=== PATIENT | female | born 1945 | race African-American/Black ===

== ENCOUNTER 2016-07-30 20:27 | Inpatient (IN) | payer MEDICARE, MEDICAID ==
[~2016-07-30] VITALS: Ht 167.6 cm; Wt 78.0 kg
[~2016-07-30 20:27] MED LIST: CEPHALEXIN PO; KEPP500 PO
[2016-07-31] MEDS ORDERED: LORAZEPAM 2MG/ML CPJ ONE ×2 (00:44→00:52)
[2016-07-31] MEDS ORDERED: LORAZEPAM 2MG/ML CPJ IM ONE (01:30)
[2016-07-31] MEDS ORDERED: LEVETIRACETAM 500MG PREMIX 100 ML IV ONE (01:30)
[2016-07-31 01:43] LABS: BASOPHILS % 0.9 % (0.0-2.0); EOSINOPHILS % 2.2 % (0.0-5.0); HEMATOCRIT. 32.3 % (36.0-48.0); HEMOGLOBIN. 10.9 g/dL (12.0-16.0); LYMPHOCYTES % 40.6 % (20.0-50.0); MEAN CORPUSCULAR HEMOGLOBIN 30.5 pg (28.0-32.0); MEAN CORPUSCULAR HGB CONC 33.7 g/dL (31.0-37.0); MEAN CORPUSCULAR VOLUME 90.4 fL (81.0-99.0); MEAN PLATELET VOLUME 7.6 fl (7.4-10.4); MONOCYTES % 12.4 % (2.0-8.0); NEUTROPHILS % 43.9 % (40.0-76.0); PLATELET 320 x1000/uL (130-400); RED BLOOD CELL COUNT 3.57 mill/uL (4.2-5.4); RED CELL DISTRIBUTION WIDTH 14.2 % (11.6-14.6); WHITE BLOOD COUNT 4.4 x1000/uL (4.5-11.0)
[2016-07-31 01:50] LABS: INR 1.3; PARTIAL THROMBOPLASTIN TIME 21.4 sec (24.0-34.0); PROTHROMBIN TIME 13.4 sec
[2016-07-31 01:57] LABS: ALANINE AMINOTRANSFERASE 16 IU/L (13-61); ALBUMIN 3.1 g/dL (3.4-5.0); ANION GAP 9; CALCIUM 8.6 mg/dL (8.5-10.1); CARBON DIOXIDE 30 mEq/L (21-32); CHLORIDE 108 mEq/L (98-107); INDEX HEMOLYSI 1 (1-3); INDEX ICTERIC 1 (1-4); INDEX LIPEMIC 1 (1-3); TROPONIN I < 0.02 ng/mL (0.00-0.04); UREA NITROGEN BLOOD 8 mg/dL (7-21); eGFR > 60 mL/min (>60)
[2016-07-31 08:20] VITALS: BP 142/86
[2016-07-31 08:30] VITALS: BP 142/86
[2016-07-31] MEDS ORDERED: ONDANSETRON HCL 4MG/2ML VIAL IV PRN (10:45)
[2016-07-31] MEDS ORDERED: HYDROCODONE/ACETAMINOPHEN 5/325MG TABLET PO PRN (10:45)
[2016-07-31] MEDS ORDERED: DOCUSATE SODIUM 100MG CAPSULE PO PRN (10:45)
[2016-07-31] MEDS ORDERED: ACETAMINOPHEN 650MG/20.3ML UDC GT PRN (10:45)
[2016-07-31] MEDS ORDERED: ACETAMINOPHEN 650MG SUPP PR PRN (10:45)
[2016-07-31] MEDS ORDERED: CLONIDINE 0.1MG TABLET PO PRN (10:45)
[2016-07-31] MEDS ORDERED: DIPHENHYDRAMINE 50MG/ML VIAL IV PRN (10:45)
[2016-07-31] MEDS ORDERED: NA PHOS,M-B/NA PHOS,DI-BA ENEMA 118ML PR PRN (10:45)
[2016-07-31] MEDS ORDERED: ACETAMINOPHEN 325MG TABLET PO PRN (10:45)
[2016-07-31] MEDS ORDERED: MAGNESIUM/ALUMINUM HYDROXIDE/SIMETHICONE 30ML UDC PO PRN (10:45)
[2016-07-31] MEDS ORDERED: GUAIFENESIN 200MG/10ML SUGAR FREE UDC PO PRN (10:45)
[2016-07-31] MEDS ORDERED: IPRATROPIUM/ALBUTEROL 0.5-3(2.5)MG/3ML NEB INH PRN (10:45)
[2016-07-31] MEDS ORDERED: DEXTROSE 50% WATER 50ML SYRINGE IV PRN (11:00)
[2016-07-31] MEDS: LEVETIRACETAM 500MG/5ML CUP PO SCH ×2 (11:58→21:05)
[2016-07-31] MEDS: ENOXAPARIN 40MG/0.4ML SYR SUBCUT SCH (11:59)
[2016-07-31 12:00] VITALS: BP 136/78
[2016-07-31] MEDS: BLOOD SUGAR DIAGNOSTIC STRIP TEST SCH ×3 (12:00→21:00)
[2016-07-31] MEDS: INSULIN LISPRO 100 UNITS/ML SUBCUT SCH ×3 (12:02→21:00)
[2016-07-31] MEDS: SODIUM CHLORIDE 0.9% INJ 3ML FLUSH IVF SCH ×2 (14:38→21:05)
[2016-07-31 17:22] VITALS: BP 140/105
[2016-07-31 20:00] VITALS: BP 116/63
[2016-08-01] VITALS: BP 102/63
[2016-08-01 04:00] VITALS: BP 112/64
[2016-08-01] MEDS: SODIUM CHLORIDE 0.9% INJ 3ML FLUSH IVF SCH ×3 (06:34→22:10)
[2016-08-01] MEDS: BLOOD SUGAR DIAGNOSTIC STRIP TEST SCH ×4 (06:39→21:00)
[2016-08-01] MEDS: INSULIN LISPRO 100 UNITS/ML SUBCUT SCH ×4 (06:39→21:00)
[2016-08-01 08:00] VITALS: BP 113/65
[2016-08-01] MEDS: LEVETIRACETAM 500MG/5ML CUP PO SCH ×3 (09:00→22:09)
[2016-08-01 12:00] VITALS: BP 132/87
[2016-08-01] MEDS: ENOXAPARIN 40MG/0.4ML SYR SUBCUT SCH (12:17)
[2016-08-01 16:00] VITALS: BP 101/58
[2016-08-01] MEDS: PHENYTOIN SODIUM 300 MG in SODIUM CHLORIDE 0.9% 50 ML IV SCH (17:23)
[2016-08-01 20:00] VITALS: BP 144/78
[2016-08-01] MEDS: FUROSEMIDE 40MG/4ML VIAL IVP SCH (22:10)
[2016-08-02] VITALS: BP 101/60
[2016-08-02 04:00] VITALS: BP 93/48
[2016-08-02] MEDS: BLOOD SUGAR DIAGNOSTIC STRIP TEST SCH ×4 (06:39→21:00)
[2016-08-02] MEDS: SODIUM CHLORIDE 0.9% INJ 3ML FLUSH IVF SCH ×3 (06:39→21:20)
[2016-08-02] MEDS: INSULIN LISPRO 100 UNITS/ML SUBCUT SCH ×4 (06:40→21:00)
[2016-08-02 08:00] VITALS: BP 99/57
[2016-08-02] MEDS: FUROSEMIDE 40MG/4ML VIAL IVP SCH (08:39)
[2016-08-02] MEDS: LEVETIRACETAM 500MG/5ML CUP PO SCH ×2 (08:39→21:20)
[2016-08-02] MEDS: PHENYTOIN SODIUM 300 MG in SODIUM CHLORIDE 0.9% 50 ML IV SCH (09:48)
[2016-08-02] MEDS: ENOXAPARIN 40MG/0.4ML SYR SUBCUT SCH (11:45)
[2016-08-02 12:00] VITALS: BP 105/64
[2016-08-02] MEDS ORDERED: DILATIN PO (12:31)
[2016-08-02 13:22] LABS: BASOPHILS % 1.1 % (0.0-2.0); EOSINOPHILS % 3.2 % (0.0-5.0); HEMATOCRIT. 37.2 % (36.0-48.0); HEMOGLOBIN. 12.6 g/dL (12.0-16.0); LYMPHOCYTES % 41.3 % (20.0-50.0); MEAN CORPUSCULAR HEMOGLOBIN 30.4 pg (28.0-32.0); MEAN CORPUSCULAR HGB CONC 33.8 g/dL (31.0-37.0); MEAN CORPUSCULAR VOLUME 89.7 fL (81.0-99.0); MEAN PLATELET VOLUME 7.6 fl (7.4-10.4); MONOCYTES % 14.1 % (2.0-8.0); NEUTROPHILS % 40.3 % (40.0-76.0); PLATELET 303 x1000/uL (130-400); RED BLOOD CELL COUNT 4.15 mill/uL (4.2-5.4); RED CELL DISTRIBUTION WIDTH 13.7 % (11.6-14.6); WHITE BLOOD COUNT 3.1 x1000/uL (4.5-11.0)
[2016-08-02 13:44] LABS: ANION GAP 11; CARBON DIOXIDE 32 mEq/L (21-32); CHLORIDE 103 mEq/L (98-107); UREA NITROGEN BLOOD 8 mg/dL (7-21)
[2016-08-02 13:45] LABS: ALANINE AMINOTRANSFERASE 15 IU/L (13-61); ALBUMIN 3.1 g/dL (3.4-5.0); CALCIUM 8.9 mg/dL (8.5-10.1); INDEX HEMOLYSI 1 (1-3); INDEX ICTERIC 1 (1-4); INDEX LIPEMIC 1 (1-3); eGFR > 60 mL/min (>60)
[2016-08-02 16:00] VITALS: BP 110/65
[2016-08-02 20:00] VITALS: BP 119/73
[2016-08-02] MEDS: PHENYTOIN SODIUM EXTENDED 100MG CAPSULE PO SCH (21:20)
[2016-08-03] VITALS (8 sets, daily range): BP systolic 106–135; BP diastolic 59–96
[2016-08-03] MEDS: SODIUM CHLORIDE 0.9% INJ 3ML FLUSH IVF SCH ×3 (05:45→21:08)
[2016-08-03] MEDS: BLOOD SUGAR DIAGNOSTIC STRIP TEST SCH ×4 (06:11→21:00)
[2016-08-03] MEDS: INSULIN LISPRO 100 UNITS/ML SUBCUT SCH ×4 (06:11→21:00)
[2016-08-03] MEDS: LEVETIRACETAM 500MG/5ML CUP PO SCH ×2 (08:30→21:09)
[2016-08-03] MEDS: FUROSEMIDE 40MG/4ML VIAL IVP SCH (08:33)
[2016-08-03] MEDS: ENOXAPARIN 40MG/0.4ML SYR SUBCUT SCH (11:37)
[2016-08-03 17:51] LABS: BASOPHILS % 0.7 % (0.0-2.0); HEMATOCRIT. 41.1 % (36.0-48.0); HEMOGLOBIN. 13.6 g/dL (12.0-16.0); LYMPHOCYTES % 44.3 % (20.0-50.0); MEAN CORPUSCULAR HGB CONC 33.1 g/dL (31.0-37.0); MEAN CORPUSCULAR VOLUME 90.8 fL (81.0-99.0); MEAN PLATELET VOLUME 7.4 fl (7.4-10.4); MONOCYTES % 14.7 % (2.0-8.0); NEUTROPHILS % 36.3 % (40.0-76.0); PLATELET 254 x1000/uL (130-400); RED BLOOD CELL COUNT 4.52 mill/uL (4.2-5.4); RED CELL DISTRIBUTION WIDTH 14.1 % (11.6-14.6); WHITE BLOOD COUNT 2.9 x1000/uL (4.5-11.0)
[2016-08-03 18:19] LABS: ALANINE AMINOTRANSFERASE 17 IU/L (13-61); ANION GAP 9; CALCIUM 9.4 mg/dL (8.5-10.1); CARBON DIOXIDE 33 mEq/L (21-32); CHLORIDE 104 mEq/L (98-107); INDEX HEMOLYSI 1 (1-3); INDEX ICTERIC 1 (1-4); INDEX LIPEMIC 1 (1-3); UREA NITROGEN BLOOD 9 mg/dL (7-21); eGFR > 60 mL/min (>60)
[2016-08-03] MEDS: PHENYTOIN SODIUM EXTENDED 100MG CAPSULE PO SCH (21:08)
== END 2016-08-03 22:25 | disposition home or self-care (01) | DRG 101 ==
LOC: ER 20:28 → 8WST 07-31 03:45
PROVIDERS: ADMIT Family Medicine; ATTEND Family Medicine
PROC: 02H633Z Insertion of Infusion Device into Right Atrium, Percutaneous Approach (ICD-10-PCS; principal; 2016-07-31)
PROC: B244ZZZ Ultrasonography of Right Heart (ICD-10-PCS; 2016-07-31)
DX: G40.401 Other generalized epilepsy and epileptic syndromes, not intractable, with status epilepticus (principal); E46 Unspecified protein-calorie malnutrition; C79.51 Secondary malignant neoplasm of bone; D63.8 Anemia in other chronic diseases classified elsewhere; E11.9 Type 2 diabetes mellitus without complications; E78.00 Pure hypercholesterolemia, unspecified; E78.5 Hyperlipidemia, unspecified; I10 Essential (primary) hypertension; I89.0 Lymphedema, not elsewhere classified; G31.84 Mild cognitive impairment of uncertain or unknown etiology; J45.909 Unspecified asthma, uncomplicated; Z86.73 Personal history of transient ischemic attack (TIA), and cerebral infarction without residual deficits; Z85.3 Personal history of malignant neoplasm of breast; Z90.12 Acquired absence of left breast and nipple; Z68.27 Body mass index [BMI] 27.0-27.9, adult; Z88.5 Allergy status to narcotic agent; Z91.041 Radiographic dye allergy status; Z91.011 Allergy to milk products; Z79.899 Other long term (current) drug therapy
CPT/HCPCS: 36415; 36556; 70450; 71010; 71250; 73030; 80053; 80185; 82962; 84484; 85025; 85610; 85730; 86300; 93005; 97163; 99291; J1165; J1650; J1940; J1953; J2060; J7040

== ENCOUNTER 2016-09-11 18:09 | Inpatient (IN) | payer MEDICARE, MEDICAID ==
[~2016-09-11] VITALS: Ht 167.6 cm; Wt 77.1 kg
[~2016-09-11 18:09] MED LIST changes: -CEPHALEXIN PO; +DILATIN PO; +PHEN100C4 PO
[2016-09-11] MEDS ORDERED: PANTOPRAZOLE SODIUM 40 MG/VIAL IV STA (19:27)
[2016-09-11 19:58] LABS: BASOPHILS % 0.5 % (0.0-2.0); EOSINOPHILS % 1.3 % (0.0-5.0); HEMATOCRIT. 28.5 % (36.0-48.0); HEMOGLOBIN. 9.5 g/dL (12.0-16.0); MEAN CORPUSCULAR VOLUME 89.9 fL (81.0-99.0); MEAN PLATELET VOLUME 6.9 fl (7.4-10.4); MONOCYTES % 10.9 % (2.0-8.0); NEUTROPHILS % 70.3 % (40.0-76.0); PLATELET 262 x1000/uL (130-400); RED BLOOD CELL COUNT 3.17 mill/uL (4.2-5.4); RED CELL DISTRIBUTION WIDTH 14.4 % (11.6-14.6)
[2016-09-11 20:05] LABS: INR 1.1; PROTHROMBIN TIME 11.8 sec
[2016-09-11 20:07] LABS: CARBON DIOXIDE 27 mEq/L (21-32); CHLORIDE 109 mEq/L (98-107)
[2016-09-11 20:14] LABS: TROPONIN I < 0.02 ng/mL (0.00-0.04)
[2016-09-12 01:30] VITALS: BP 108/59
[2016-09-12 04:00] VITALS: BP 112/64
[2016-09-12 07:00] LABS: BASOPHILS % 0.5 % (0.0-2.0); EOSINOPHILS % 4.1 % (0.0-5.0); HEMOGLOBIN. 8.5 g/dL (12.0-16.0); LYMPHOCYTES % 32.5 % (20.0-50.0); MEAN CORPUSCULAR HEMOGLOBIN 30.5 pg (28.0-32.0); MEAN CORPUSCULAR VOLUME 89.6 fL (81.0-99.0); MEAN PLATELET VOLUME 7.5 fl (7.4-10.4); NEUTROPHILS % 48.9 % (40.0-76.0); PLATELET 231 x1000/uL (130-400); RED CELL DISTRIBUTION WIDTH 14.4 % (11.6-14.6)
[2016-09-12 07:42] LABS: CARBON DIOXIDE 28 mEq/L (21-32); CHLORIDE 110 mEq/L (98-107)
[2016-09-12 08:00] VITALS: BP 105/63
[2016-09-12 12:00] VITALS: BP 170/70
[2016-09-12 12:10] VITALS: BP 100/59
[2016-09-12] MEDS: PANTOPRAZOLE SODIUM 40 MG/VIAL IV SCH (14:45)
[2016-09-12 16:00] VITALS: BP 101/55
[2016-09-12] MEDS ORDERED: GUAIFENESIN 200MG/10ML SUGAR FREE UDC PO PRN (19:45)
[2016-09-12] MEDS ORDERED: DOCUSATE SODIUM 100MG CAPSULE PO PRN (19:45)
[2016-09-12] MEDS ORDERED: ACETAMINOPHEN 650MG/20.3ML UDC GT PRN (19:45)
[2016-09-12] MEDS ORDERED: ACETAMINOPHEN 650MG SUPP PR PRN (19:45)
[2016-09-12] MEDS ORDERED: ONDANSETRON HCL 4MG/2ML VIAL IV PRN (19:45)
[2016-09-12] MEDS ORDERED: NA PHOS,M-B/NA PHOS,DI-BA ENEMA 118ML PR PRN (19:45)
[2016-09-12] MEDS ORDERED: MAGNESIUM/ALUMINUM HYDROXIDE/SIMETHICONE 30ML UDC PO PRN (19:45)
[2016-09-12] MEDS ORDERED: CLONIDINE 0.1MG TABLET PO PRN (19:45)
[2016-09-12] MEDS ORDERED: IPRATROPIUM/ALBUTEROL 0.5-3(2.5)MG/3ML NEB INH PRN (19:45)
[2016-09-12 21:19] LABS: TOTAL IRON BINDING CAPACITY 218 ug/dL (250-450)
[2016-09-12] MEDS: SODIUM CHLORIDE 0.9% INJ 3ML FLUSH IVF SCH (22:00)
[2016-09-12] MEDS: LEVETIRACETAM 500MG TABLET PO SCH (22:13)
[2016-09-13] VITALS (16 sets, daily range): BP systolic 91–142; BP diastolic 49–82
[2016-09-13] MEDS: HYDROCODONE/ACETAMINOPHEN 5/325MG TABLET PO PRN (01:01)
[2016-09-13] MEDS: IPRATROPIUM/ALBUTEROL 0.5-3(2.5)MG/3ML NEB INH SCH ×4 (02:13→19:53)
[2016-09-13] MEDS: SODIUM CHLORIDE 0.9% INJ 3ML FLUSH IVF SCH ×2 (06:00→21:07)
[2016-09-13 06:41] LABS: BASOPHILS % 0.4 % (0.0-2.0); EOSINOPHILS % 2.7 % (0.0-5.0); HEMATOCRIT. 21.8 % (36.0-48.0); HEMOGLOBIN. 7.4 g/dL (12.0-16.0); LYMPHOCYTES % 33.3 % (20.0-50.0); MEAN CORPUSCULAR HEMOGLOBIN 30.8 pg (28.0-32.0); MEAN CORPUSCULAR VOLUME 90.1 fL (81.0-99.0); MEAN PLATELET VOLUME 7.5 fl (7.4-10.4); MONOCYTES % 9.1 % (2.0-8.0); NEUTROPHILS % 54.5 % (40.0-76.0); PLATELET 207 x1000/uL (130-400); RED BLOOD CELL COUNT 2.42 mill/uL (4.2-5.4); RED CELL DISTRIBUTION WIDTH 14.4 % (11.6-14.6)
[2016-09-13 08:10] LABS: CARBON DIOXIDE 28 mEq/L (21-32); CHLORIDE 110 mEq/L (98-107); HDL CHOLESTEROL 58 mg/dL (40-59); LDL CHOLESTEROL 82 mg/dL (5-100)
[2016-09-13] MEDS: LEVETIRACETAM 500MG TABLET PO SCH ×2 (08:27→21:06)
[2016-09-13] MEDS: PANTOPRAZOLE SODIUM 40 MG/VIAL IV SCH (08:27)
[2016-09-13] MEDS ORDERED: LORAZEPAM 2MG/ML CPJ ONE (11:23)
[2016-09-14] VITALS (10 sets, daily range): BP systolic 96–136; BP diastolic 56–82
[2016-09-14] MEDS: IPRATROPIUM/ALBUTEROL 0.5-3(2.5)MG/3ML NEB INH SCH ×4 (01:51→20:40)
[2016-09-14] MEDS: SODIUM CHLORIDE 0.9% INJ 3ML FLUSH IVF SCH ×3 (05:20→22:36)
[2016-09-14] MEDS: PANTOPRAZOLE SODIUM 40 MG/VIAL IV SCH (09:02)
[2016-09-14] MEDS: LEVETIRACETAM 500MG TABLET PO SCH ×2 (09:02→21:00)
[2016-09-14] MEDS ORDERED: BACTERIOSTATIC SODIUM CHLORIDE 0.9% 30ML VIAL IJ ONE (09:37)
[2016-09-14 16:45] LABS: BASOPHILS % 0.3 % (0.0-2.0); EOSINOPHILS % 3.1 % (0.0-5.0); HEMATOCRIT. 22.5 % (36.0-48.0); HEMOGLOBIN. 7.8 g/dL (12.0-16.0); LYMPHOCYTES % 25.6 % (20.0-50.0); MEAN CORPUSCULAR HEMOGLOBIN 30.9 pg (28.0-32.0); MEAN CORPUSCULAR VOLUME 89.5 fL (81.0-99.0); MEAN PLATELET VOLUME 7.5 fl (7.4-10.4); MONOCYTES % 10.9 % (2.0-8.0); NEUTROPHILS % 60.1 % (40.0-76.0); PLATELET 186 x1000/uL (130-400); RED BLOOD CELL COUNT 2.52 mill/uL (4.2-5.4); RED CELL DISTRIBUTION WIDTH 14.4 % (11.6-14.6)
[2016-09-14 16:57] LABS: CHLORIDE 112 mEq/L (98-107)
[2016-09-14 17:02] LABS: CARBON DIOXIDE 29 mEq/L (21-32)
[2016-09-14] MEDS ORDERED: MIDAZOLAM HCL 2 MG/2 ML VIAL IV PRN (18:10)
[2016-09-14] MEDS ORDERED: FENTANYL CITRATE/PF 50MCG/ML 2ML VIAL IV PRN (18:10)
[2016-09-14] MEDS ORDERED: MIDAZOLAM HCL 5 MG/5 ML VIAL ONE (18:12)
[2016-09-14] MEDS ORDERED: SIMETHICONE 40 MG/0.6 ML 30ML ONE (18:12)
[2016-09-14] MEDS ORDERED: FENTANYL CITRATE/PF 50MCG/ML 2ML VIAL ONE (18:12)
[2016-09-14] MEDS ORDERED: SORBITOL 70% SOLN 30ML PO SCH (22:00)
[2016-09-14] MEDS: DEXT 5%/0.45% NACL 1000ML 1,000 ML IV SCH (22:36)
[2016-09-15] VITALS (18 sets, daily range): BP systolic 99–139; BP diastolic 53–90
[2016-09-15] MEDS: IPRATROPIUM/ALBUTEROL 0.5-3(2.5)MG/3ML NEB INH SCH ×3 (01:21→20:14)
[2016-09-15] MEDS: SORBITOL 70% SOLN 30ML PO NR ×2 (06:00→13:01)
[2016-09-15] MEDS: SODIUM CHLORIDE 0.9% INJ 3ML FLUSH IVF SCH ×3 (06:41→22:00)
[2016-09-15] MEDS: PANTOPRAZOLE SODIUM 40 MG/VIAL IV SCH (09:12)
[2016-09-15] MEDS: LEVETIRACETAM 500MG TABLET PO SCH ×2 (09:12→21:09)
[2016-09-15] MEDS ORDERED: NA PHOS,M-B/NA PHOS,DI-BA ENEMA 118ML PR NR ×2 (11:00→20:00)
[2016-09-15] MEDS: LORAZEPAM 2MG/ML CPJ IV PRN (12:25)
[2016-09-15] MEDS: DEXT 5%/0.45% NACL 1000ML 1,000 ML IV SCH (13:06)
[2016-09-15 13:07] LABS: HEMATOCRIT 27.9 % (36.0-48.0); HEMOGLOBIN 9.5 g/dL (12.0-16.0)
[2016-09-15] MEDS ORDERED: MIDAZOLAM HCL 5 MG/5 ML VIAL ONE ×2 (16:03→16:33)
[2016-09-15] MEDS ORDERED: FENTANYL CITRATE/PF 50MCG/ML 2ML VIAL ONE (16:03)
[2016-09-15] MEDS ORDERED: SIMETHICONE 40 MG/0.6 ML 30ML ONE (16:04)
[2016-09-15] MEDS ORDERED: MIDAZOLAM HCL 5 MG/5 ML VIAL IV PRN (16:19)
[2016-09-15 20:14] LABS: HEMATOCRIT 28.1 % (36.0-48.0); HEMOGLOBIN 9.4 g/dL (12.0-16.0)
[2016-09-15] MEDS ORDERED: SORBITOL 70% SOLN 30ML PO NR (21:00)
[2016-09-15] MEDS: HYDROCODONE/ACETAMINOPHEN 5/325MG TABLET PO PRN (21:17)
[2016-09-16] VITALS (12 sets, daily range): BP systolic 96–131; BP diastolic 47–106
[2016-09-16] MEDS: DEXT 5%/0.45% NACL 1000ML 1,000 ML IV SCH ×2 (00:44→15:13)
[2016-09-16] MEDS: IPRATROPIUM/ALBUTEROL 0.5-3(2.5)MG/3ML NEB INH SCH ×4 (01:04→21:15)
[2016-09-16] MEDS: SODIUM CHLORIDE 0.9% INJ 3ML FLUSH IVF SCH ×3 (05:54→21:15)
[2016-09-16] MEDS ORDERED: SORBITOL 70% SOLN 30ML PO NR (06:00)
[2016-09-16] MEDS ORDERED: NA PHOS,M-B/NA PHOS,DI-BA ENEMA 118ML PR NR (08:00)
[2016-09-16] MEDS: LEVETIRACETAM 500MG TABLET PO SCH ×2 (08:44→21:14)
[2016-09-16] MEDS: PANTOPRAZOLE SODIUM 40 MG/VIAL IV SCH (08:45)
[2016-09-16] MEDS ORDERED: SIMETHICONE 40 MG/0.6 ML 30ML ONE (13:23)
[2016-09-16] MEDS ORDERED: MIDAZOLAM HCL 5 MG/5 ML VIAL ONE (13:23)
[2016-09-16] MEDS ORDERED: FENTANYL CITRATE/PF 50MCG/ML 2ML VIAL ONE (13:24)
[2016-09-16] MEDS ORDERED: MIDAZOLAM HCL 5 MG/5 ML VIAL IV PRN (13:51)
[2016-09-16] MEDS ORDERED: SODIUM CHLORIDE 0.9% 10ML VIAL ONE (14:24)
[2016-09-17] VITALS (10 sets, daily range): BP systolic 92–131; BP diastolic 46–77
[2016-09-17] MEDS ORDERED: CEFTRIAXONE 1 G PREMIX 50 ML IV SCH
[2016-09-17] MEDS: IPRATROPIUM/ALBUTEROL 0.5-3(2.5)MG/3ML NEB INH SCH ×4 (00:32→20:27)
[2016-09-17] MEDS: DEXT 5%/0.45% NACL 1000ML 1,000 ML IV SCH ×2 (03:08→16:28)
[2016-09-17 04:06] LABS: CLARITY URINE CLEAR (CLEAR); COLOR URINE YELLOW (YELLOW); GLUCOSE URINE NEGATIVE (NEGATIVE); KETONES URINE NEGATIVE (NEGATIVE); LEUKOCYTE ESTERASE URINE NEGATIVE (NEGATIVE); NITRITE URINE NEGATIVE (NEGATIVE); OCCULT BLOOD URINE 1+ (NEGATIVE); PH URINE 5.5 (4.5-8.0); PROTEIN URINE NEGATIVE (NEGATIVE); SPECIFIC GRAVITY URINE 1.013 (1.005-1.030)
[2016-09-17] MEDS: ACETAMINOPHEN 325MG TABLET PO PRN (05:14)
[2016-09-17] MEDS: SODIUM CHLORIDE 0.9% INJ 3ML FLUSH IVF SCH ×3 (06:00→21:20)
[2016-09-17] MEDS: PANTOPRAZOLE SODIUM 40 MG/VIAL IV SCH (08:22)
[2016-09-17] MEDS: LEVETIRACETAM 500MG TABLET PO SCH ×2 (08:23→21:17)
[2016-09-17] MEDS ORDERED: SODIUM CHLORIDE 0.9% 1000ML BAG (SEPSIS BOLUS) IV ONE (09:15)
[2016-09-17] MEDS ORDERED: SODIUM CHLORIDE 0.9% 500 ML IV ONE (09:30)
[2016-09-17] MEDS ORDERED: CEFTRIAXONE SODIUM 1 G/VIAL IM NR (09:45)
[2016-09-17 10:29] LABS: BASOPHILS % 0.2 % (0.0-2.0); EOSINOPHILS % 1.3 % (0.0-5.0); HEMATOCRIT. 27.5 % (36.0-48.0); HEMOGLOBIN. 9.5 g/dL (12.0-16.0); LYMPHOCYTES % 13.7 % (20.0-50.0); MEAN CORPUSCULAR HEMOGLOBIN 30.4 pg (28.0-32.0); MEAN CORPUSCULAR VOLUME 88.3 fL (81.0-99.0); MEAN PLATELET VOLUME 6.9 fl (7.4-10.4); MONOCYTES % 8.2 % (2.0-8.0); NEUTROPHILS % 76.6 % (40.0-76.0); PLATELET 200 x1000/uL (130-400); RED BLOOD CELL COUNT 3.12 mill/uL (4.2-5.4); RED CELL DISTRIBUTION WIDTH 14.9 % (11.6-14.6)
[2016-09-17 10:34] LABS: CARBON DIOXIDE 25 mEq/L (21-32); CHLORIDE 106 mEq/L (98-107)
[2016-09-17] MEDS ORDERED: VANCOMYCIN 1250MG in DEXTROSE 5% WATER 250ML IV NR (23:30)
[2016-09-18] VITALS (13 sets, daily range): BP systolic 102–134; BP diastolic 43–78
[2016-09-18] MEDS: DIPHENHYDRAMINE 50MG/ML VIAL IV PRN ×2 (00:59→21:15)
[2016-09-18] MEDS: LORAZEPAM 2MG/ML CPJ IV PRN (00:59)
[2016-09-18] MEDS: ACETAMINOPHEN 325MG TABLET PO PRN ×4 (01:18→21:15)
[2016-09-18] MEDS: IPRATROPIUM/ALBUTEROL 0.5-3(2.5)MG/3ML NEB INH SCH ×4 (02:25→20:51)
[2016-09-18] MEDS: DEXT 5%/0.45% NACL 1000ML 1,000 ML IV SCH ×2 (05:01→20:55)
[2016-09-18] MEDS: SODIUM CHLORIDE 0.9% INJ 3ML FLUSH IVF SCH ×3 (05:02→21:13)
[2016-09-18] MEDS ORDERED: DEXTROSE 50% WATER 50ML SYRINGE IV PRN (09:45)
[2016-09-18] MEDS: PANTOPRAZOLE SODIUM 40 MG/VIAL IV SCH (09:55)
[2016-09-18] MEDS: LEVETIRACETAM 500MG TABLET PO SCH (09:55)
[2016-09-18] MEDS ORDERED: LEVETIRACETAM 250MG TABLET PO SCH (10:15)
[2016-09-18] MEDS ORDERED: VANCOMYCIN 750 MG PREMIX 150 ML IV SCH (11:30)
[2016-09-18] MEDS: BLOOD SUGAR DIAGNOSTIC STRIP TEST SCH ×3 (12:30→21:00)
[2016-09-18] MEDS: INSULIN LISPRO 100 UNITS/ML SUBCUT SCH ×3 (13:00→21:00)
[2016-09-18] MEDS: LEVETIRACETAM 250MG TABLET PO SCH (21:00)
[2016-09-18 21:19] LABS: HEMATOCRIT. 23.7 % (36.0-48.0); HEMOGLOBIN. 8.1 g/dL (12.0-16.0); MEAN CORPUSCULAR HEMOGLOBIN 30.1 pg (28.0-32.0); MEAN CORPUSCULAR VOLUME 88.1 fL (81.0-99.0); PLATELET 190 x1000/uL (130-400); RED BLOOD CELL COUNT 2.69 mill/uL (4.2-5.4); RED CELL DISTRIBUTION WIDTH 14.2 % (11.6-14.6)
[2016-09-18 21:29] LABS: CHLORIDE 106 mEq/L (98-107)
[2016-09-18 21:38] LABS: CARBON DIOXIDE 31 mEq/L (21-32)
[2016-09-18 21:42] LABS: PLATELET ESTIMATE NORMAL
[2016-09-19] VITALS (12 sets, daily range): BP systolic 80–133; BP diastolic 49–72
[2016-09-19] MEDS: DIPHENHYDRAMINE 50MG/ML VIAL IV PRN (00:04)
[2016-09-19] MEDS: IPRATROPIUM/ALBUTEROL 0.5-3(2.5)MG/3ML NEB INH SCH ×3 (01:40→12:46)
[2016-09-19] MEDS: SODIUM CHLORIDE 0.9% INJ 3ML FLUSH IVF SCH ×2 (06:11→14:00)
[2016-09-19] MEDS: BLOOD SUGAR DIAGNOSTIC STRIP TEST SCH ×3 (07:49→17:25)
[2016-09-19] MEDS ORDERED: SODIUM BICARBONATE 4% (2.4MEQ) 5ML VIAL IV ONE ×2 (08:00→14:52)
[2016-09-19] MEDS ORDERED: LIDOCAINE HCL 1% 20ML VIAL (Pyxis) INJ ONE ×2 (08:00→14:52)
[2016-09-19] MEDS: INSULIN LISPRO 100 UNITS/ML SUBCUT SCH ×3 (08:00→17:50)
[2016-09-19] MEDS ORDERED: VANCOMYCIN 1250MG in DEXTROSE 5% WATER 250ML IV SCH (09:00)
[2016-09-19] MEDS ORDERED: LORAZEPAM 2MG/ML CPJ ONE (09:02)
[2016-09-19] MEDS ORDERED: LORAZEPAM 2MG/ML CPJ IV NR ×2 (09:15→09:30)
[2016-09-19] MEDS ORDERED: LORAZEPAM 2MG/ML CPJ IV ONE ×2 (09:30→10:00)
[2016-09-19] MEDS: DEXT 5%/0.45% NACL 1000ML 1,000 ML IV SCH (10:35)
[2016-09-19] MEDS: PANTOPRAZOLE SODIUM 40 MG/VIAL IV SCH (10:35)
[2016-09-19] MEDS: LEVETIRACETAM 250MG TABLET PO SCH (10:54)
[2016-09-19 11:39] LABS: BASOPHILS % 0.7 % (0.0-2.0); EOSINOPHILS % 5.1 % (0.0-5.0); HEMATOCRIT. 24.5 % (36.0-48.0); HEMOGLOBIN. 8.4 g/dL (12.0-16.0); LYMPHOCYTES % 29.5 % (20.0-50.0); MEAN CORPUSCULAR HEMOGLOBIN 30.3 pg (28.0-32.0); MEAN CORPUSCULAR VOLUME 88.6 fL (81.0-99.0); MEAN PLATELET VOLUME 7.4 fl (7.4-10.4); NEUTROPHILS % 52.7 % (40.0-76.0); PLATELET 213 x1000/uL (130-400); RED BLOOD CELL COUNT 2.76 mill/uL (4.2-5.4); RED CELL DISTRIBUTION WIDTH 14.5 % (11.6-14.6)
[2016-09-19 11:57] LABS: CARBON DIOXIDE 30 mEq/L (21-32); CHLORIDE 107 mEq/L (98-107); PHENYTOIN 0.9 ug/mL (10-20)
[2016-09-19] MEDS ORDERED: CEFAZOLIN 2,000 MG in DEXT 5% WATER 100 ML IV SCH (22:00)
== END 2016-09-19 18:40 | disposition home health service (06) | DRG 377 ==
LOC: ER 18:21 → 5WST 21:44 → EDBEDREQ 21:47 → ENRESERV 23:04 → 5WST 09-12 02:59 → 5EST 09-13
PROVIDERS: ADMIT Family Medicine; ATTEND Family Medicine
PROC: 30233N1 Transfusion of Nonautologous Red Blood Cells into Peripheral Vein, Percutaneous Approach (ICD-10-PCS; 2016-09-13)
PROC: 02HV33Z Insertion of Infusion Device into Superior Vena Cava, Percutaneous Approach (ICD-10-PCS; 2016-09-13)
PROC: B548ZZA Ultrasonography of Superior Vena Cava, Guidance (ICD-10-PCS; 2016-09-13)
PROC: 0DB68ZX Excision of Stomach, Via Natural or Artificial Opening Endoscopic, Diagnostic (ICD-10-PCS; principal; 2016-09-14 16:30)
PROC: 3E1H88Z Irrigation of Lower GI using Irrigating Substance, Via Natural or Artificial Opening Endoscopic (ICD-10-PCS; 2016-09-15)
PROC: 0DJD8ZZ Inspection of Lower Intestinal Tract, Via Natural or Artificial Opening Endoscopic (ICD-10-PCS; 2016-09-16)
PROC: 06HM33Z Insertion of Infusion Device into Right Femoral Vein, Percutaneous Approach (ICD-10-PCS; 2016-09-18)
PROC: 02HV33Z Insertion of Infusion Device into Superior Vena Cava, Percutaneous Approach (ICD-10-PCS; 2016-09-19)
PROC: B548ZZA Ultrasonography of Superior Vena Cava, Guidance (ICD-10-PCS; 2016-09-19)
PROC: 02PYX3Z Removal of Infusion Device from Great Vessel, External Approach (ICD-10-PCS; 2016-09-19)
DX: K92.2 Gastrointestinal hemorrhage, unspecified (principal); E43 Unspecified severe protein-calorie malnutrition; C79.51 Secondary malignant neoplasm of bone; K55.20 Angiodysplasia of colon without hemorrhage; D50.0 Iron deficiency anemia secondary to blood loss (chronic); E11.9 Type 2 diabetes mellitus without complications; F03.90 Unspecified dementia, unspecified severity, without behavioral disturbance, psychotic disturbance, mood disturbance, and anxiety; G40.909 Epilepsy, unspecified, not intractable, without status epilepticus; I10 Essential (primary) hypertension; J44.9 Chronic obstructive pulmonary disease, unspecified; K29.60 Other gastritis without bleeding; K44.9 Diaphragmatic hernia without obstruction or gangrene; M19.90 Unspecified osteoarthritis, unspecified site; K57.30 Diverticulosis of large intestine without perforation or abscess without bleeding; K31.819 Angiodysplasia of stomach and duodenum without bleeding; K64.8 Other hemorrhoids; W18.30XA Fall on same level, unspecified, initial encounter; Y93.89 Activity, other specified; Y92.89 Other specified places as the place of occurrence of the external cause; Z88.5 Allergy status to narcotic agent; Z91.041 Radiographic dye allergy status; Z91.011 Allergy to milk products; Y99.8 Other external cause status; Z82.3 Family history of stroke; Z86.73 Personal history of transient ischemic attack (TIA), and cerebral infarction without residual deficits; Z90.12 Acquired absence of left breast and nipple; Z92.21 Personal history of antineoplastic chemotherapy; Z91.14 Patient's other noncompliance with medication regimen; Z92.3 Personal history of irradiation; Z79.899 Other long term (current) drug therapy; Z68.27 Body mass index [BMI] 27.0-27.9, adult; Z85.3 Personal history of malignant neoplasm of breast
CPT/HCPCS: 36415; 36430; 36569; 70450; 71010; 73060; 73090; 76937; 77001; 80048; 80053; 80061; 80185; 81001; 82270; 82542; 82728; 82962; 83540; 83550; 83605; 83690; 84484; 85014; 85018; 85025; 85610; 86850; 86900; 86920; 87040; 87077; 87086; 88305; 88312; 88313; 93005; 94640; 96374; 97163; 99285; A4216; A6261; C1725; C1893; C9113; J0690; J0696; J1200; J1815; J2060; J2250; J3010; J3370; J3490; J7030; J7050; J7060; J7620; P9016

== ENCOUNTER 2018-04-02 15:11 | Inpatient (IN) | payer MEDICARE, MEDICAID ==
[~2018-04-02] VITALS: Ht 167.6 cm; Wt 81.6 kg
[~2018-04-02 15:11] MED LIST changes: -DILATIN PO
[2018-04-02] MEDS ORDERED: NITROGLYCERIN 0.4MG TABLET SL SL PRN (16:15)
[2018-04-02] MEDS ORDERED: ASPIRIN 81MG TABLET PO ONE (16:15)
[2018-04-02 16:52] LABS: BASOPHILS % 0.4 % (0.0-2.0); EOSINOPHILS % 0.2 % (0.0-5.0); HEMATOCRIT. 26.2 % (36.0-48.0); HEMOGLOBIN. 8.7 g/dL (12.0-16.0); MEAN CORPUSCULAR HEMOGLOBIN 32.3 pg (28.0-32.0); MEAN CORPUSCULAR VOLUME 96.8 fL (81.0-99.0); MEAN PLATELET VOLUME 7.4 fl (7.4-10.4); MONOCYTES % 11.2 % (2.0-8.0); NEUTROPHILS % 71.2 % (40.0-76.0); PLATELET 235 x1000/uL (130-400); RED CELL DISTRIBUTION WIDTH 16.5 % (11.6-14.6)
[2018-04-02 16:56] LABS: CHLORIDE 107 mEq/L (98-107)
[2018-04-02 16:59] LABS: INR 1.1; PARTIAL THROMBOPLASTIN TIME 25.8 sec (23.4-31.0); PROTHROMBIN TIME 10.9 sec (9.1-11.1)
[2018-04-02] MEDS ORDERED: VANCOMYCIN 1 G PREMIX 200 ML IV ONE (17:15)
[2018-04-02] MEDS ORDERED: PIPERACILLIN/TAZ 3.375G PREMIX 50 ML IV ONE (17:15)
[2018-04-02] MEDS ORDERED: VISCOUS LIDOCAINE 2% 15 ML UDC MM STA (19:04)
[2018-04-02 19:12] LABS: CLARITY URINE CLOUDY (CLEAR); COLOR URINE YELLOW (YELLOW); KETONES URINE NEGATIVE (NEGATIVE); LEUKOCYTE ESTERASE URINE 3+ (NEGATIVE); NITRITE URINE POSITIVE (NEGATIVE); OCCULT BLOOD URINE 1+ (NEGATIVE); PH URINE 7.5 (4.5-8.0); PROTEIN URINE NEGATIVE (NEGATIVE); SPECIFIC GRAVITY URINE 1.011 (1.005-1.030)
[2018-04-02] MEDS ORDERED: LIDOCAINE HCL 2% JELLY 5ML TOP ONE (19:15)
[2018-04-02] MEDS ORDERED: GUAIFENESIN 200MG/10ML SUGAR FREE UDC PO PRN (19:30)
[2018-04-02] MEDS ORDERED: HYDROCODONE/ACETAMINOPHEN 5/325MG TABLET PO PRN (19:30)
[2018-04-02] MEDS ORDERED: LIDOCAINE HCL/PF 1% 10 MG/ML 5ML VIAL IJ ONE (19:30)
[2018-04-02] MEDS ORDERED: DOCUSATE SODIUM 100MG CAPSULE PO PRN (19:30)
[2018-04-02] MEDS ORDERED: IPRATROPIUM/ALBUTEROL 0.5-3(2.5)MG/3ML NEB INH PRN (19:30)
[2018-04-02] MEDS ORDERED: CLONIDINE 0.1MG TABLET PO PRN (19:30)
[2018-04-02] MEDS ORDERED: MAGNESIUM/ALUMINUM HYDROXIDE/SIMETHICONE 30ML UDC PO PRN (19:30)
[2018-04-03] VITALS (7 sets, daily range): BP systolic 99–124; BP diastolic 41–59
[2018-04-03 01:17] LABS: CHLORIDE 107 mEq/L (98-107)
[2018-04-03 01:27] LABS: CREATINE KINASE 87 IU/L (26-192); CREATINE KINASE MB FRACTION < 1.0 ng/mL (0.5-3.6)
[2018-04-03] MEDS: ACETAMINOPHEN 325MG TABLET PO PRN (08:48)
[2018-04-03] MEDS: ENOXAPARIN 40MG/0.4ML SYR SUBCUT SCH (08:49)
[2018-04-03 09:25] LABS: BASOPHILS % 0.7 % (0.0-2.0); EOSINOPHILS % 0.4 % (0.0-5.0); HEMATOCRIT. 25.9 % (36.0-48.0); HEMOGLOBIN. 8.6 g/dL (12.0-16.0); LYMPHOCYTES % 16.3 % (20.0-50.0); MEAN CORPUSCULAR HEMOGLOBIN 32.7 pg (28.0-32.0); MEAN CORPUSCULAR VOLUME 98.1 fL (81.0-99.0); MEAN PLATELET VOLUME 7.2 fl (7.4-10.4); MONOCYTES % 14.3 % (2.0-8.0); NEUTROPHILS % 68.3 % (40.0-76.0); PLATELET 216 x1000/uL (130-400); RED BLOOD CELL COUNT 2.64 mill/uL (4.2-5.4); RED CELL DISTRIBUTION WIDTH 16.8 % (11.6-14.6)
[2018-04-03 09:41] LABS: LDL CHOLESTEROL 70 mg/dL (5-100)
[2018-04-03 09:43] LABS: HDL CHOLESTEROL 79 mg/dL (40-59)
[2018-04-03 09:44] LABS: CREATINE KINASE 68 IU/L (26-192)
[2018-04-03 09:45] LABS: CREATINE KINASE MB FRACTION < 1.0 ng/mL (0.5-3.6)
[2018-04-03] MEDS ORDERED: DEXTROSE 50% WATER 50ML SYRINGE IV PRN (10:00)
[2018-04-03] MEDS ORDERED: INFLUENZA VIRUS VACCINE(AFLURIA) 0.5ML SYR IM ONE (12:00)
[2018-04-03] MEDS: INSULIN LISPRO 100 UNITS/ML SUBCUT SCH ×3 (12:50→21:00)
[2018-04-03] MEDS: BLOOD SUGAR DIAGNOSTIC STRIP TEST SCH ×3 (13:14→20:41)
[2018-04-03 14:11] LABS: *AMPHETAMINES SCREEN URINE NEGATIVE (NEGATIVE); *BARBITURATES SCREEN URINE NEGATIVE (NEGATIVE); *BENZODIAZEPINES SCREEN URINE NEGATIVE (NEGATIVE)
[2018-04-03 14:12] LABS: *COCAINE SCREEN URINE NEGATIVE (NEGATIVE); CANNABINOID URINE SCREEN NEGATIVE (NEGATIVE); METHADONE URINE SCREEN NEGATIVE (NEGATIVE); OPIATES URINE SCREEN NEGATIVE (NEGATIVE); PHENCYCLIDINE URINE SCREEN NEGATIVE (NEGATIVE)
[2018-04-03] MEDS: SODIUM CHLORIDE 0.9% 1,000 ML IV SCH (17:29)
[2018-04-03] MEDS: LEVETIRACETAM 250MG TABLET PO SCH (17:32)
[2018-04-03] MEDS: PHENYTOIN SODIUM EXTENDED 100MG CAPSULE PO SCH (17:33)
[2018-04-03] MEDS ORDERED: CEFTRIAXONE 2 G in DEXTROSE 5% WATER 50 ML IV SCH (18:00)
[2018-04-04 00:27] VITALS: BP 121/53
[2018-04-04] MEDS: ACETAMINOPHEN 325MG TABLET PO PRN ×2 (00:38→14:54)
[2018-04-04] MEDS: SODIUM CHLORIDE 0.9% 1,000 ML IV SCH ×3 (01:00→20:33)
[2018-04-04 04:00] VITALS: BP 112/51
[2018-04-04] MEDS: BLOOD SUGAR DIAGNOSTIC STRIP TEST SCH ×4 (07:21→20:33)
[2018-04-04] MEDS: INSULIN LISPRO 100 UNITS/ML SUBCUT SCH ×4 (07:50→20:33)
[2018-04-04 08:00] VITALS: BP 90/60
[2018-04-04] MEDS: ENOXAPARIN 40MG/0.4ML SYR SUBCUT SCH (09:00)
[2018-04-04] MEDS: PHENYTOIN SODIUM EXTENDED 100MG CAPSULE PO SCH ×3 (09:13→18:23)
[2018-04-04] MEDS: LEVETIRACETAM 250MG TABLET PO SCH ×2 (09:13→18:23)
[2018-04-04] MEDS: LEVOFLOXACIN 750MG PREMIX 150 ML IV SCH (11:29)
[2018-04-04 12:00] VITALS: BP 90/45
[2018-04-04 16:00] VITALS: BP 94/48
[2018-04-04 20:00] VITALS: BP 103/52
[2018-04-05] VITALS: BP 101/55
[2018-04-05 04:00] VITALS: BP 98/50
[2018-04-05] MEDS: SODIUM CHLORIDE 0.9% 1,000 ML IV SCH ×2 (06:05→17:00)
[2018-04-05] MEDS: BLOOD SUGAR DIAGNOSTIC STRIP TEST SCH ×4 (06:29→21:00)
[2018-04-05] MEDS: INSULIN LISPRO 100 UNITS/ML SUBCUT SCH ×4 (07:10→21:00)
[2018-04-05] MEDS: PHENYTOIN SODIUM EXTENDED 100MG CAPSULE PO SCH ×5 (08:45→18:29)
[2018-04-05] MEDS: LEVETIRACETAM 250MG TABLET PO SCH ×5 (08:45→18:30)
[2018-04-05] MEDS: ENOXAPARIN 40MG/0.4ML SYR SUBCUT SCH ×2 (08:46→09:00)
[2018-04-05] MEDS: LEVOFLOXACIN 750MG PREMIX 150 ML IV SCH (10:18)
[2018-04-05] MEDS: MIDODRINE HCL 2.5MG TABLET PO SCH ×4 (13:00→18:28)
[2018-04-05] MEDS: ONDANSETRON HCL 4MG/2ML INJ IV PRN (18:52)
[2018-04-05 23:59] VITALS: BP 143/71
[2018-04-06] MEDS: SODIUM CHLORIDE 0.9% 1,000 ML IV SCH (03:00)
[2018-04-06 03:51] VITALS: BP 101/53
[2018-04-06] MEDS: BLOOD SUGAR DIAGNOSTIC STRIP TEST SCH ×2 (07:12→11:37)
[2018-04-06] MEDS: INSULIN LISPRO 100 UNITS/ML SUBCUT SCH ×2 (07:50→11:37)
[2018-04-06 08:00] VITALS: BP 126/58
[2018-04-06] MEDS: MIDODRINE HCL 2.5MG TABLET PO SCH (08:15)
[2018-04-06] MEDS: LEVOFLOXACIN 750MG PREMIX 150 ML IV SCH (11:39)
[2018-04-06] MEDS: ACETAMINOPHEN 325MG TABLET PO PRN (11:39)
[2018-04-06] MEDS: ONDANSETRON HCL 4MG/2ML INJ IV PRN (11:39)
[2018-04-06 12:00] VITALS: BP 143/80
[2018-04-06] MEDS ORDERED: LEVO750T21 MT (12:33)
[2018-04-06 13:04] VITALS: BP 143/80
== END 2018-04-06 16:44 | disposition home or self-care (01) | DRG 871 ==
LOC: ER 15:11 → 6WST 17:25 → EDBEDREQTM 17:32 → EDBEDREQ 17:32 → ENRESERV 04-03 01:27
PROVIDERS: ADMIT Internal Medicine; ATTEND Internal Medicine
PROC: 02HV33Z Insertion of Infusion Device into Superior Vena Cava, Percutaneous Approach (ICD-10-PCS; principal; 2018-04-03)
PROC: B548ZZA Ultrasonography of Superior Vena Cava, Guidance (ICD-10-PCS; 2018-04-03)
PROC: B5181ZA Fluoroscopy of Superior Vena Cava using Low Osmolar Contrast, Guidance (ICD-10-PCS; 2018-04-03)
DX: A41.51 Sepsis due to Escherichia coli [E. coli] (principal); J96.90 Respiratory failure, unspecified, unspecified whether with hypoxia or hypercapnia; N39.0 Urinary tract infection, site not specified; J90 Pleural effusion, not elsewhere classified; G93.40 Encephalopathy, unspecified; T88.6XXA Anaphylactic reaction due to adverse effect of correct drug or medicament properly administered, initial encounter; J93.9 Pneumothorax, unspecified; F03.90 Unspecified dementia, unspecified severity, without behavioral disturbance, psychotic disturbance, mood disturbance, and anxiety; G40.909 Epilepsy, unspecified, not intractable, without status epilepticus; J44.9 Chronic obstructive pulmonary disease, unspecified; B96.20 Unspecified Escherichia coli [E. coli] as the cause of diseases classified elsewhere; T49.0X5A Adverse effect of local antifungal, anti-infective and anti-inflammatory drugs, initial encounter; J45.909 Unspecified asthma, uncomplicated; I95.9 Hypotension, unspecified; E11.9 Type 2 diabetes mellitus without complications; I10 Essential (primary) hypertension; Z85.3 Personal history of malignant neoplasm of breast; Z86.73 Personal history of transient ischemic attack (TIA), and cerebral infarction without residual deficits; Z87.01 Personal history of pneumonia (recurrent); Z90.12 Acquired absence of left breast and nipple; Z88.6 Allergy status to analgesic agent; Z91.041 Radiographic dye allergy status; Z91.011 Allergy to milk products
CPT/HCPCS: 36415; 36569; 71045; 76937; 77001; 80048; 80061; 80185; 80305; 82550; 82553; 82962; 83735; 83880; 84443; 84484; 87077; 87186; 93005; 93970; 99285; C1725; C1893; J0696; J1650; J1956; J2405; J3490; J7030; J7060